=== PATIENT | female | born 1950 | race Hispanic/Latino ===

== ENCOUNTER 2019-05-13 10:19 | Outpatient (CLI) | payer BC, MEDICARE ==
--- NOTE | 2019-05-13 11:34 | MMO ---
Bilateral MAMMO Bilat Screen [facility]. CLINICAL HISTORY: Patient is 69 years old and is seen for screening. The patient has no family history of breast cancer. The patient has no personal history of cancer. VIEWS: The views performed were: bilateral craniocaudal with tomosynthesis and bilateral mediolateral oblique with tomosynthesis. FILMS COMPARED: The present examination has been compared to prior imaging studies performed at [facility] on 03/09/2008 and 10/24/2014. MAMMOGRAM FINDINGS: There are scattered fibroglandular densities. There are no suspicious masses, calcifications or areas of architectural distortion. There are benign appearing calcifications in the right breast. There are no suspicious masses, suspicious calcifications, or new areas of architectural distortion. IMPRESSION: THERE IS NO MAMMOGRAPHIC EVIDENCE OF MALIGNANCY. A ROUTINE FOLLOW-UP MAMMOGRAM IN 1 YEAR IS RECOMMENDED. THE RESULTS OF THIS EXAM WERE SENT TO THE PATIENT. ACR BI-RADS Category 2 - Benign finding MAMMOGRAPHY NOTE: 1. A negative mammogram report should not delay a biopsy if a dominant of clinically suspicious mass is present. 2. Approximately 10% to 15% of breast cancers are not detected by mammography. 3. Adenosis and dense breasts may obscure an underlying neoplasm. Reported by: KELSIE MEDINA MD Electonically Signed: [id number]
--- NOTE | 2019-05-13 11:41 | BD ---
DEXA BONE DENSITY STUDY: Date: 05/13/19 HISTORY: Osteoporosis. 69-year-old postmenopausal female for screening. FINDINGS: Lumbar Spine: BMD (g/cm2) L1 0.832 T-Score: -1.4 L2 0.882 T-Score: -1.3 L3 0.895 T-Score: -1.7 L4 0.815 T-Score: -2.2 L1-L4 0.856 T-Score: -1.7 Femoral Neck: 0.605 T-Score: -2.2 Total Femur: 0.812 T-Score: -1.1 IMPRESSION: Osteopenia. This patient has a 10 year WHO fracture risk for a major osteoporotic fracture of 7.1% an d for a hip fracture of 1.5%. POS: [facility]
--- NOTE | 2019-05-13 12:14 | RAD ---
PA AND LATERAL VIEWS CHEST: Date: 05/13/19 HISTORY: Cough and congestion. FINDINGS: The heart size is normal. The lungs are well expanded without focal areas of consolidation, pneumotho races, or pleural effusions. No acute osseous abnormalities are seen. IMPRESSION: No radiographic evidence of acute cardiopulmonary process. POS: [facility]
== END 2019-05-13 10:20 | disposition home or self-care (01) ==
LOC: BICMAMMO 10:19
PROVIDERS: ATTEND Specialist
DX: Z12.31 Encounter for screening mammogram for malignant neoplasm of breast (principal); Z13.820 Encounter for screening for osteoporosis; R05 Cough; M85.859 Other specified disorders of bone density and structure, unspecified thigh
CPT/HCPCS: 71046; 77063; 77067; 77080

== ENCOUNTER 2019-07-30 17:40 | Inpatient (IN) | payer BC, MEDICARE ==
[2019-07-30 18:17] LABS: #Basophils 0.1 thou/uL (0.0-0.2); #Eosinphils 0.2 thou/uL (0.0-0.7); #Lymphocytes 1.5 thou/uL (1.20-3.40); #Monocytes 0.5 thou/uL (0.11-0.59); %Basophils 1.4 % (0.0-1.0); %Eosinophils 1.9 % (0.0-10.0); %Lymphocytes 16.2 % (21.0-51.0); %Monocytes 5.1 % (0.0-10.0); %Neutrophils 75.4 % (42.0-75.0); Hemoglobin 13.7 g/dL (12.0-16.0); Mean Corpuscular HGB CONC 34.2 g/dL (32.0-36.0); Mean Platelet Volume 7.6 fL (7.4-10.4); Platelet Count 240 thou/uL (130-400); RBC Distribution Width 13.6 % (11.5-14.5); Red Blood Cell (RBC) Count 5.06 mill/uL (4.20-5.40); White Blood Cell (WBC) Count 9.2 thou/uL (4.8-10.8)
--- NOTE | 2019-07-30 18:29 | RAD ---
PA AND LATERAL CHEST: 07/30/19 HISTORY: Cough and runny nose. COMPARISON: 05/13/19 study. Heart size and mediastinum are within normal limits. There is some atherosclerotic changes of the aor ta. The lungs are clear of infiltrates. No significant bony findings. IMPRESSION: No active intrathoracic disease. POS: [facility]
[2019-07-30 18:31] LABS: ALT (SGPT) 16 U/L (8-55); AST (SGOT) 12 U/L (5-34); Albumin 4.3 g/dL (3.4-4.8); Alkaline Phosphatase 106 U/L (40-110); Anion Gap 18 mmol/L (10-20); BUN (Urea Nitrogen) 10 mg/dL (9.8-20.1); Bilirubin, Total 0.3 mg/dL (0.2-1.2); CK (CPK) 64 U/L (29-168); Calc. Creatinine Clearance 0 mL/min (70-130); Calcium 9.5 mg/dL (7.8-10.44); Carbon Dioxide 20 mmol/L (23-31); Chloride 106 mmol/L (98-107); Estimated GFR-MDRD 79; Glucose 138 mg/dL (80-115); Protein, Total 7.3 g/dL (6.0-8.3); Sodium 140 mmol/L (136-145)
[2019-07-30] MEDS ORDERED: cefTRIAXone\\ROCEPHIN 1 GM VIAL ONE (19:25)
--- NOTE | 2019-07-30 19:32 | CT ---
CTA OF THE THORAX UTILIZING IV CONTRAST, PE PROTOCOL AND 3D REFORMATTED IMAGING 07/30/19 INDICATION: 69-year-old female for cough. COMPARISON: Prior chest radiograph dated 07/30/19 and 05/13/19. FINDINGS: No central or segmental pulmonary embolus is evident. There is a subpleural pulmonary nodule in the l eft lower lobe adjacent to the left major fissure measuring 7.3 mm. There is an additional sub 4 mm s ubpleural pulmonary nodule adjacent to this larger pulmonary nodule on image 64 of series 8. There ar e additional small scattered sub 4 mm pulmonary nodules. There are areas of peripheral tree-in-bud no dularity within the lateral segment of the right middle lobe. There are patchy areas of ground glass opacities seen within both lower lobes, portions of the lingula and upper lobes. No confluent air spa ce opacity is evident. No pathologically enlarged lymph nodes are noted. There is prominent fatty cali er. There is a small hiatal hernia. There are numerous tiny hypodensities within the spleen. The gal lbladder is surgically absent. No acute osseous abnormality is noted. IMPRESSION: 1. No central or segmental pulmonary embolus. 2. Areas of peripheral reticulonodularity is suspicious for a peripheral small airways disease. There are also areas of peripheral patchy ground glass opacities within both lungs, also suspicious f or peripheral airways disease. Findings can be seen with a bronchiolitis of infectious or inflammator y etiology. Recommend appropriate therapy. There are scattered pulmonary nodules within both lungs, l argest measuring 7 mm. A follow-up CT scan in 6 to 8 weeks is recommended to document stability of pu lmonary nodules and resolution of the patchy ground glass opacities and tree-in-bud nodularity descri bed above. 3. Tiny hypodensities within the spleen are nonspecific. This could be related to phase of contr ast administration. These could also be related to tiny hemangiomas or entities such as granulomatous disease from fungal disease or TB. Lymphoma could have a similar appearance; however, there is no ly mphadenopathy noted. Further evaluation with multiphase CT of the abdomen utilizing hemangioma khai col is recommended. This could be performed in a nonemergent setting. 4. Fatty liver. 5. Small hiatal hernia. Code T and Code LN POS: [facility]
[2019-07-30] MEDS ORDERED: Azithromycin 500 MG VIAL ONE (20:07)
[2019-07-30 22:08] VITALS: BMI 26.3
[2019-07-31] MEDS ORDERED: Acetaminophen 325 MG TAB PO PRN ×2 (02:38→11:04)
[2019-07-31] MEDS ORDERED: Sodium Chloride 0.9% 1,000 ML IV SCH (02:45)
[2019-07-31] MEDS ORDERED: Prevnar 13-Val Conj/PF 0.5 ML SYRINGE IM ONE ×2 (09:00→16:00)
--- NOTE | 2019-07-31 11:36 | RAD ---
EXAM: Chest Two Views 07/31/2019 11:31 AM HISTORY: History of pneumonia COMPARISON: July 30, 2019 CT PE examination and chest radiograph FINDINGS: Heart: Normal in size and contour. Pulmonary vessels: Normal. Costophrenic angles: Clear. Lungs: No focal consolidation is evident. The peripheral reticular nodularity and patchy groundglass opacity seen within both lungs on the comparison CT PET examination are now well-seen on the current radiograph. Pneumothorax: None. Osseous structures:Intact. Additional findings: Cholecystectomy IMPRESSION: No lung consolidation.
--- NOTE | 2019-07-31 13:09 | HP ---
CHIEF COMPLAINT ON ADMISSION: Bilateral pneumonia. HISTORY OF PRESENT ILLNESS: The patient is a 69-year-old female, who in the last several days had developed a cough after being around her , who came home with a cough. This cough was dry, nonproductive. She denied any fever, but because of his persistence and the fact that she wanted to go visit a grandchild and help take care of it, she came to [facility] outpatient in [place] for evaluation. There during the workup which included lab, which was normal. Chest x-ray, which was normal. A D-dimer was slightly elevated. So that the patient underwent CT PE protocol. There was noted that she had bilateral ground-glass opacities and some minor nodules of probably no clinical significance, but do need to be followed up. The patient's heart rate was noted during this time to be over 120, and her blood pressure was elevated in the 190s on arrival. She did have a runny nose. No nausea, vomiting, or diarrhea. The ER physician contacted Dr. Peters and was decided that due to her atypical presentation, she probably had atypical pneumonia and needed hospitalization to monitor her vital signs and begin IV therapy. PAST MEDICAL HISTORY: Significant for iie-nicgrca-pbtgrmenw diabetes, hypertension, dyslipidemia. PAST SURGICAL HISTORY: Includes cholecystectomy and hysterectomy. PAST PSYCHIATRIC HISTORY: Negative. SOCIAL HISTORY: She is . Denies drug, alcohol use, or smoking. ALLERGIES: SHE HAS NO KNOWN DRUG ALLERGIES. MEDICATIONS ON ADMISSION: Include metformin 500 mg b.i.d. and Crestor 10 mg at bedtime. REVIEW OF SYSTEMS: CONSTITUTIONAL: Denied fever, chills, malaise, vomiting, or diarrhea. HEENT: Admits to rhinorrhea, but other sores, ulcerations, or drainage are negative. CARDIOVASCULAR: Denies chest pain or palpitations, although her heart is tachycardic. RESPIRATORY: Admits to cough, but it is nonproductive and there is no dyspnea. GI: Denies nausea, vomiting, or diarrhea. : Denies dysuria or blood in urine or stool. MUSCULOSKELETAL: Denies arthralgias, swelling, or painful joints. SKIN: Denies any new rashes or lesions. NEUROLOGIC: Denies any headaches, blurred vision, hypesthesia, or anesthesia. PSYCHIATRIC: Denies any depression, anxiety, or significant thought disorder. PHYSICAL EXAMINATION: At the time of admission, VITAL SIGNS: Blood pressure presenting to the ER was 192/122 with pulse rate of 131, temperature of 98.8, O2 saturation of 97% on room air. GENERAL: This is a well-developed, well-nourished, elderly female, alert, oriented, and cooperative. HEENT: Normocephalic, atraumatic. Pupils are equal, round, and reactive to light. Extraocular muscles are intact. Arcus senilis bilaterally. TMs, nares, and pharynx are clear. NECK: Supple. Trachea midline. CHEST: With bibasilar rales. HEART: Regular rate and rhythm. Not tachycardic at present. ABDOMEN: Soft, nontender without organomegaly. : Deferred. BREAST: Deferred. EXTREMITIES: Without clubbing, cyanosis, or edema. Normal range of motion present. SKIN: Without rashes or lesions. NEUROLOGIC: Cranial nerves are intact. Gait and cerebellar function are untested at this time. Sensory exam is grossly intact. Mental status is clear. IMAGING STUDIES: On admission, CT scan showing bilateral lower lobe opacities. Chest x-ray not revealing any abnormalities, probably due to mild dehydration. LABORATORY DATA: The WBCs are 9.2, hemoglobin 13.7, hematocrit 40 with platelets at 240. Sodium 140, potassium 4.0, chloride 106, CO2 of 20, BUN 10, creatinine 0.73, glucose 138, lactic acid 1.8, calcium 9. Liver functions normal. Troponins negative. BNP is 10. Liver functions unremarkable. The D-dimer is slightly elevated at 0.48. ASSESSMENT: 1. Atypical pneumonia, bilateral. 2. Non-insulin dependent diabetic. 3. History of dyslipidemia. PLAN: Plan will be IV antibiotics, serial re-evaluation. Repeating chest x-ray once hydration is complete and neb treatments to open up the airways. Job ID: [id number]
[2019-07-31] MEDS ORDERED: cefTRIAXone\\ROCEPHIN 1 GM in Sodium Chloride 0.9% 100 ML IVPB SCH (18:00)
[2019-07-31] MEDS ORDERED: Adacel (T-DAP) 0.5 ML SYRINGE IM ONE (18:30)
[2019-07-31] MEDS: metFORMIN 500 MG TAB PO SCH (18:55)
[2019-07-31] MEDS ORDERED: Azithromycin 500 MG in Sodium Chloride 0.9% 250 ML 250 ML IVPB SCH (20:00)
[2019-07-31] MEDS: Rosuvastatin 10 MG TAB PO SCH (20:25)
[2019-08-01] MEDS: Benzonatate 100 MG CAP PO PRN ×2 (05:50→14:21)
[2019-08-01 06:19] LABS: #Eosinphils 0.3 thou/uL (0.0-0.7); #Lymphocytes 1.7 thou/uL (1.20-3.40); #Monocytes 0.5 thou/uL (0.11-0.59); #Neutrophils 5.2 thou/uL (1.40-6.50); %Basophils 0.2 % (0.0-1.0); %Eosinophils 3.3 % (0.0-10.0); %Lymphocytes 22.3 % (21.0-51.0); %Monocytes 6.9 % (0.0-10.0); %Neutrophils 67.3 % (42.0-75.0); Hemoglobin 12.3 g/dL (12.0-16.0); Mean Corpuscular HGB CONC 34.5 g/dL (32.0-36.0); Mean Corpuscular Hemoglobin 27.3 pg (27.0-31.0); Mean Corpuscular Volume 79.3 fL (78.0-98.0); Mean Platelet Volume 8.1 fL (7.4-10.4); Platelet Count 186 thou/uL (130-400); RBC Distribution Width 13.6 % (11.5-14.5); Red Blood Cell (RBC) Count 4.52 mill/uL (4.20-5.40); White Blood Cell (WBC) Count 7.8 thou/uL (4.8-10.8)
[2019-08-01 06:28] LABS: Hemoglobin A1c 6.8 % (4.0-6.0)
[2019-08-01 06:45] LABS: Anion Gap 12 mmol/L (10-20); BUN (Urea Nitrogen) 10 mg/dL (9.8-20.1); Calc. Creatinine Clearance 77 mL/min (70-130); Calcium 8.7 mg/dL (7.8-10.44); Carbon Dioxide 23 mmol/L (23-31); Cardiac Risk 4.4 (Less than 4.5); Chloride 109 mmol/L (98-107); Cholesterol 133 mg/dl (< 200 Desired); Estimated GFR-MDRD 86; Glucose 141 mg/dL (80-115); HDL Cholesterol 30 mg/dL (>60 Neg Risk); LDL Cholesterol, Calculated 39 mg/dL; Sodium 140 mmol/L (136-145); Triglycerides 321 mg/dL (Less than 150)
[2019-08-01] MEDS ORDERED: JARDIANCE PO SCH (09:00)
[2019-08-01] MEDS: metFORMIN 500 MG TAB PO SCH ×2 (09:30→17:09)
[2019-08-01] MEDS ORDERED: Alogliptin 6.25 MG TAB PO SCH (10:15)
[2019-08-01] MEDS: Rosuvastatin 10 MG TAB PO SCH (19:33)
[2019-08-01] MEDS ORDERED: Azithromycin 250 MG TAB PO SCH (20:00)
[2019-08-02 06:33] LABS: #Eosinphils 0.3 thou/uL (0.0-0.7); #Lymphocytes 1.1 thou/uL (1.20-3.40); #Monocytes 0.5 thou/uL (0.11-0.59); #Neutrophils 5.9 thou/uL (1.40-6.50); %Eosinophils 3.2 % (0.0-10.0); %Lymphocytes 14.6 % (21.0-51.0); %Monocytes 6.9 % (0.0-10.0); %Neutrophils 75.2 % (42.0-75.0); Hemoglobin 12.3 g/dL (12.0-16.0); Mean Corpuscular HGB CONC 35.5 g/dL (32.0-36.0); Mean Corpuscular Hemoglobin 27.3 pg (27.0-31.0); Mean Corpuscular Volume 76.9 fL (78.0-98.0); Mean Platelet Volume 8.3 fL (7.4-10.4); Platelet Count 200 thou/uL (130-400); RBC Distribution Width 13.6 % (11.5-14.5); White Blood Cell (WBC) Count 7.8 thou/uL (4.8-10.8)
[2019-08-02 07:01] LABS: Anion Gap 13 mmol/L (10-20); BUN (Urea Nitrogen) 9 mg/dL (9.8-20.1); Calc. Creatinine Clearance 74 mL/min (70-130); Calcium 8.9 mg/dL (7.8-10.44); Carbon Dioxide 22 mmol/L (23-31); Chloride 104 mmol/L (98-107); Estimated GFR-MDRD 81; Glucose 123 mg/dL (80-115); Potassium 3.7 mmol/L (3.5-5.1); Sodium 135 mmol/L (136-145)
[2019-08-02] MEDS ORDERED: Alogliptin 6.25 MG TAB PO SCH (09:00)
[2019-08-02] MEDS: metFORMIN 500 MG TAB PO SCH (09:07)
--- NOTE | 2019-08-02 09:15 | RAD ---
CHEST 1 VIEW: INDICATION: Pneumonia. COMPARISON: Prior exam dated 07/31/2019. FINDINGS: Lungs are clear. Heart size is normal. No acute osseous abnormality is evident. IMPRESSION: No acute cardiopulmonary abnormality. POS: [facility]
[2019-08-02 10:32] VITALS: BP 153/81; TEMP 98.4
== END 2019-08-02 10:36 | disposition home or self-care (01) | DRG 195 ==
LOC: SCSER 17:40 → T4-B 19:42
PROVIDERS: ADMIT Specialist; ATTEND Specialist
DX: J18.9 Pneumonia, unspecified organism (principal); I10 Essential (primary) hypertension; E11.9 Type 2 diabetes mellitus without complications; E78.5 Hyperlipidemia, unspecified; Z90.49 Acquired absence of other specified parts of digestive tract; Z90.710 Acquired absence of both cervix and uterus
CPT/HCPCS: 36415; 36416; 71045; 71046; 71275; 80048; 80053; 80061; 82550; 83036; 83605; 83880; 84484; 85025; 85379; 87040; 87804; 90471; 90670; 90715; 93005; 94640; 96361; 96365; 96367; G0009; J0456; J0696; J3490; J7050; J7620

== ENCOUNTER 2023-08-27 15:08 | Outpatient (CLI) | payer MEDICARE, BC | END 2023-08-27 15:09 | disposition home or self-care (01) | LOC: BICMAMMO 15:08 | PROVIDERS: ATTEND Family Medicine | DX: Z13.820 Encounter for screening for osteoporosis (principal); M85.89 Other specified disorders of bone density and structure, multiple sites | CPT/HCPCS: 77080 ==

== ENCOUNTER 2023-11-23 14:43 | Outpatient (CLI) | payer MEDICARE, BC | END 2023-11-23 14:44 | disposition home or self-care (01) | LOC: ULT 14:43 | PROVIDERS: ATTEND Family Medicine | DX: M79.604 Pain in right leg (principal); M79.605 Pain in left leg; R79.89 Other specified abnormal findings of blood chemistry; Z86.718 Personal history of other venous thrombosis and embolism | CPT/HCPCS: 93970 ==

== ENCOUNTER 2023-11-24 09:59 | Outpatient (CLI) | payer MEDICARE, BC ==
[~2023-11-24 09:59] MED LIST: Iopamidol 370 76% 100 ML VIAL ONE
== END 2023-11-24 10:00 | disposition home or self-care (01) ==
LOC: CT 09:59
PROVIDERS: ATTEND Family Medicine
DX: R79.1 Abnormal coagulation profile (principal)
CPT/HCPCS: 71275

== ENCOUNTER 2025-09-06 12:25 | Outpatient (CLI) | payer MEDICARE, BC | END 2025-09-06 12:26 | disposition home or self-care (01) | LOC: BICMAMMO 12:25 | PROVIDERS: ATTEND Family Medicine | DX: Z78.0 Asymptomatic menopausal state (principal); M85.89 Other specified disorders of bone density and structure, multiple sites | CPT/HCPCS: 77080 ==